=== PATIENT | female | born 2000 | race Two or more races ===

== ENCOUNTER 2022-11-22 07:18 | Outpatient (CLI) | payer OTHER | END 2022-11-22 07:24 | disposition home or self-care (01) | LOC: SONOGRAMA 07:18 | PROVIDERS: ATTEND Family Medicine | DX: R10.2 Pelvic and perineal pain (principal) ==

== ENCOUNTER 2023-03-21 13:33 | Outpatient (CLI) | payer OTHER | END 2023-03-21 13:47 | disposition home or self-care (01) | LOC: SONOGRAMA 13:33 | PROVIDERS: ATTEND General Practice | DX: N63.12 Unspecified lump in the right breast, upper inner quadrant (principal); N63.21 Unspecified lump in the left breast, upper outer quadrant ==

== ENCOUNTER 2024-11-25 13:26 | Outpatient (CLI) | payer OTHER | END 2024-11-25 13:30 | disposition home or self-care (01) | LOC: RAD 13:26 | PROVIDERS: ATTEND Specialist | DX: M25.532 Pain in left wrist (principal); M25.531 Pain in right wrist; M79.641 Pain in right hand; M79.642 Pain in left hand; M25.561 Pain in right knee; M25.562 Pain in left knee ==